=== PATIENT | male | born 1955 | race Caucasian/White ===

== ENCOUNTER → 2016-08-23 | Outpatient (CLI) | payer OTHER ==
--- NOTE | 2016-08-23 10:45 | XR ---
EXAMINATION TYPE: XR shoulder complete LT DATE OF EXAM: 08/23/2016 10:40 AM COMPARISON: NONE HISTORY: Pain TECHNIQUE: Three views are submitted. FINDINGS: The osseous structures are intact. There is no acute fracture or dislocation. The AC joint is maint ained. IMPRESSION: 1. No acute process. If there is concern for internal derangement then consider MRI.
== END | disposition home or self-care (01) ==
LOC: RADXRMAIN 10:27
PROVIDERS: ATTEND Emergency Medicine
DX: S43.402A Unspecified sprain of left shoulder joint, initial encounter (principal)

== ENCOUNTER 2017-10-09 07:54 | Observation (INO) | payer BC ==
[2017-10-09] MEDS ORDERED: SODIUM CHLORIDE 0.9% 1,000 ML IV STA (08:30)
[2017-10-09 08:50] LABS: Basophils % (A) 1 %; Eosinophils # (A) 0.3 k/uL (0-0.7); Eosinophils % (A) 5 %; HCT 45.9 % (39.0-53.0); HGB 15.2 gm/dL (13.0-17.5); Lymphocytes # (A) 1.6 k/uL (1.0-4.8); Lymphocytes % (A) 26 %; MCH 27.4 pg (25.0-35.0); MCHC 33.1 g/dL (31.0-37.0); MCV 82.8 fL (80.0-100.0); Mean Platelet Volume 7.4; Monocytes # (A) 0.4 k/uL (0-1.0); Monocytes % (A) 7 %; Neutrophils # (A) 3.7 k/uL (1.3-7.7); Neutrophils % (A) 59 %; Platelet Count 267 k/uL (150-450); RBC 5.54 m/uL (4.30-5.90); RDW 13.7 % (11.5-15.5); WBC 6.2 k/uL (3.8-10.6)
--- NOTE | 2017-10-09 08:57 | XR ---
EXAMINATION TYPE: XR chest 2V DATE OF EXAM: 10/09/2017 COMPARISON: NONE HISTORY: Facial numbness and weakness. TECHNIQUE: Frontal and lateral views of the chest are obtained. FINDINGS: Low lung volumes are present. There is no focal air space opacity, pleural effusion, or pn eumothorax seen. The cardiac silhouette size is within normal limits. Retrocardiac opacity consisten t with moderate size hiatal hernia is noted. There is moderate to severe multilevel anterior and late ral spurring in the spine. Surgical clips epigastric region are noted. There is partial visualization of surgical hardware left shoulder level. IMPRESSION: Low lung volumes without suspicious acute pulmonary process.
[2017-10-09 09:03] LABS: ALT 31 U/L (21-72); AST 29 U/L (17-59); Alkaline Phosphatase 65 U/L (38-126); Anion Gap 12 mmol/L; Blood Urea Nitrogen 21 mg/dL (9-20); Calcium 9.5 mg/dL (8.4-10.2); Carbon Dioxide 25 mmol/L (22-30); Chloride 100 mmol/L (98-107); Glucose 171 mg/dL (74-99); Partial Thromboplastin Time 22.5 sec (22.0-30.0); Potassium 3.6 mmol/L (3.5-5.1); Prothrombin Time 9.9 sec (9.0-12.0); Sodium 137 mmol/L (137-145); Total Bilirubin 0.7 mg/dL (0.2-1.3); Total Protein 6.4 g/dL (6.3-8.2)
[2017-10-09 09:05] LABS: Creatine Kinase 158 U/L (55-170)
[2017-10-09 09:18] LABS: Creatine Kinase MB 2.1 ng/mL (0.0-2.4); Troponin I <0.012 ng/mL (0.000-0.034)
--- NOTE | 2017-10-09 09:20 | CT ---
EXAMINATION TYPE: CT brain wo con DATE OF EXAM: 10/09/2017 HISTORY: Numbness and Slurred Speech, neurodeficits per order. CT DLP: 1290 mGycm. Automated Exposure Control for Dose Reduction was Utilized. TECHNIQUE: CT scan of the head is performed without contrast. COMPARISON: None. FINDINGS: There is no acute intracranial hemorrhage or midline shift identified. There is diffuse v entricular and sulcal prominence consistent with diffuse age-related cerebral atrophy. There is low- attenuation in the periventricular white matter consistent with chronic small vessel ischemic change. Area of lacunar infarction left thalamus is present axial image 31. There is moderate size left post erior frontal hematoma axial image 44. The adjacent calvarium is intact. Streak artifact limits evalu ation at level of foramen magnum from cavitary fillings. Some vascular calcification distal internal carotid and vertebral arteries is noted. IMPRESSION: No acute intracranial hemorrhage or midline shift. There is mild diffuse age-related ce rebral atrophy and mild to moderate chronic small vessel ischemic change as well as old left thalamic lacunar infarct all redemonstrated. There is moderate-sized acute left posterior frontal scalp juan david vy noted. If clinical concern for acute stroke persists further investigation with MRI study may be warranted.
[2017-10-09] MEDS ORDERED: hydrALAZINE HCL 20 MG/ML 1 ML VIAL IVP STA (10:25)
[2017-10-09] MEDS ORDERED: ASPIRIN 81 MG PO STA (10:25)
[2017-10-09] MEDS ORDERED: NITROGLYCERIN SL TABS 0.4 MG TAB SUBLINGUAL PRN (10:32)
[2017-10-09] MEDS ORDERED: ACETAMINOPHEN TAB 325 MG TAB PO PRN (10:32)
[2017-10-09] MEDS ORDERED: MORPHINE SULFATE 2 MG/ML SYRINGE IVP PRN (10:32)
--- NOTE | 2017-10-09 10:32 | ED ---
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 he has a left-sided facial numbness and facial numbness has resolved by the time he arrived here he has a history of TIAs and now he is feeling dizzy prior to arrival to the ER he noticed some chest pains chest pains in the left side they do not radiate anywhere no nausea no vomiting no cold sweats a blood pressure is quite elevated blood pressure was close to 200 systolic on arrival review of system is otherwise unremarkable no motor deficits right now - Related Data Home Medications: Home Medications Medication Instructions Recorded Confirmed Aspirin EC [Ecotrin Low Dose] 81 mg PO HS 10/09/17 10/09/17 Atorvastatin [Lipitor] 40 mg PO HS 10/09/17 10/09/17 Calcium Polycarbophil [Fibercon] 1,250 mg PO BID 10/09/17 10/09/17 Lisinopril 40 mg PO DAILY 10/09/17 10/09/17 amLODIPine [Norvasc] 5 mg PO DAILY 10/09/17 10/09/17 buPROPion HCL [Wellbutrin XL] 300 mg PO DAILY 10/09/17 10/09/17 cloNIDine HCL [Catapres] 0.2 mg PO TID 10/09/17 10/09/17 Allergies/Adverse Reactions: Allergies Allergy/AdvReac Type Severity Reaction Status Date / Time No Known Allergies Allergy Verified 10/09/17 09:25 Review of Systems ROS Statement: Those systems with pertinent positive or pertinent negative responses have been documented in the HPI. ROS Other: All systems not noted in ROS Statement are negative. General Exam - General Exam Comments Initial Comments: General: The patient is awake and alert, in no distress, and does not appear acutely ill. Skin: Skin is warm and dry and no rashes or lesions are noted. Eye: Pupils are equal, round and reactive to light, extra-ocular movements are intact; there is normal conjunctiva bilaterally. Ears, nose, mouth and throat: There are moist mucous membranes and no oral lesions. Neck: The neck is supple, there is no tenderness or JVD. Cardiovascular: There is a regular rate and rhythm. No murmur, rub or gallop is appreciated. Respiratory: To auscultation bilateral, no wheezing no rhonchi no distress respiratory solano noticed Gastrointestinal: Soft, non-distended, non-tender abdomen without masses or organomegaly noted. There is no rebound or guarding present. Bowel sounds are unremarkable. Back: There is no tenderness to palpation in the midline. There is no obvious deformity. Musculoskeletal: Normal ROM, no tenderness, There is no pedal edema. There is no calf tenderness or swelling. No cords were appreciated. Neurological: CN II-XII intact, Cranial nerves III through XII are intact. There are no obvious motor or sensory deficits. Coordination appears grossly intact. Speech is normal. Neuro deficits noticed at all Psychiatric: Cooperative, appropriate mood & affect, normal judgment. Limitations: no limitations Stroke MDM - Lab Data Result diagrams: 10/09/17 08:22 10/09/17 08:22 Lab Results 10/09/17 10/09/17 10/09/17 Range/Units 08:22 08:22 08:22 WBC 6.2 (3.8-10.6) k/uL RBC 5.54 (4.30-5.90) m/uL Hgb 15.2 (13.0-17.5) gm/dL Hct 45.9 (39.0-53.0) % MCV 82.8 (80.0-100.0) fL MCH 27.4 (25.0-35.0) pg MCHC 33.1 (31.0-37.0) g/dL RDW 13.7 (11.5-15.5) % Plt Count 267 (150-450) k/uL Neutrophils % 59 % Lymphocytes % 26 % Monocytes % 7 % Eosinophils % 5 % Basophils % 1 % Neutrophils # 3.7 (1.3-7.7) k/uL Lymphocytes # 1.6 (1.0-4.8) k/uL Monocytes # 0.4 (0-1.0) k/uL Eosinophils # 0.3 (0-0.7) k/uL Basophils # 0.0 (0-0.2) k/uL PT (9.0-12.0) sec INR (<1.2) APTT (22.0-30.0) sec Sodium 137 (137-145) mmol/L Potassium 3.6 (3.5-5.1) mmol/L Chloride 100 (98-107) mmol/L Carbon Dioxide 25 (22-30) mmol/L Anion Gap 12 mmol/L BUN 21 H (9-20) mg/dL Creatinine 0.84 (0.66-1.25) mg/dL Est GFR (CKD-EPI)AfAm >90 (>60 ml/min/1.73 sqM) Est GFR (CKD-EPI)NonAf >90 (>60 ml/min/1.73 sqM) Glucose 171 H (74-99) mg/dL Calcium 9.5 (8.4-10.2) mg/dL Total Bilirubin 0.7 (0.2-1.3) mg/dL AST 29 (17-59) U/L ALT 31 (21-72) U/L Alkaline Phosphatase 65 (38-126) U/L Total Creatine Kinase 158 (55-170) U/L CK-MB (CK-2) 2.1 (0.0-2.4) ng/mL CK-MB (CK-2) Rel Index 1.3 Troponin I <0.012 (0.000-0.034) ng/mL Total Protein 6.4 (6.3-8.2) g/dL Albumin 4.0 (3.5-5.0) g/dL 10/09/17 Range/Units 08:22 WBC (3.8-10.6) k/uL RBC (4.30-5.90) m/uL Hgb (13.0-17.5) gm/dL Hct (39.0-53.0) % MCV (80.0-100.0) fL MCH (25.0-35.0) pg MCHC (31.0-37.0) g/dL RDW (11.5-15.5) % Plt Count (150-450) k/uL Neutrophils % % Lymphocytes % % Monocytes % % Eosinophils % % Basophils % % Neutrophils # (1.3-7.7) k/uL Lymphocytes # (1.0-4.8) k/uL Monocytes # (0-1.0) k/uL Eosinophils # (0-0.7) k/uL Basophils # (0-0.2) k/uL PT 9.9 (9.0-12.0) sec INR 1.0 (<1.2) APTT 22.5 (22.0-30.0) sec Sodium (137-145) mmol/L Potassium (3.5-5.1) mmol/L Chloride (98-107) mmol/L Carbon Dioxide (22-30) mmol/L Anion Gap mmol/L BUN (9-20) mg/dL Creatinine (0.66-1.25) mg/dL Est GFR (CKD-EPI)AfAm (>60 ml/min/1.73 sqM) Est GFR (CKD-EPI)NonAf (>60 ml/min/1.73 sqM) Glucose (74-99) mg/dL Calcium (8.4-10.2) mg/dL Total Bilirubin (0.2-1.3) mg/dL AST (17-59) U/L ALT (21-72) U/L Alkaline Phosphatase (38-126) U/L Total Creatine Kinase (55-170) U/L CK-MB (CK-2) (0.0-2.4) ng/mL CK-MB (CK-2) Rel Index Troponin I (0.000-0.034) ng/mL Total Protein (6.3-8.2) g/dL Albumin (3.5-5.0) g/dL Past Medical History Past Medical History: CVA/TIA, Diabetes Mellitus, Hyperlipidemia, Hypertension History of Any Multi-Drug Resistant Organisms: None Reported Past Surgical History: Back Surgery, Bariatric Surgery, Joint Replacement Additional Past Surgical History / Comment(s): gastric sleeve, left shoulder replacement Past Psychological History: No Psychological Hx Reported Smoking Status: Never smoker Past Alcohol Use History: Rare Past Drug Use History: None Reported Course Vital Signs 10/09/17 10/09/17 07:56 09:43 Temperature 98.1 F Pulse Rate 74 65 Respiratory 18 18 Rate Blood Pressure 202/127 161/88 O2 Sat by Pulse 98 98 Oximetry KG is normal sinus ventricular rate is 62 PA interval is 204 QRS duration is 98 QT/QTc is 460/2422 review of this EKG reveals T-wave inversion in lead 3 and a T -wave a T-wave flattening in aVF also noticed T-wave inversion in AVR poor T waves in V2 no ST elevation or ST depression noticed in the rest of the leads (Reassessment CBC, INR, comp his metabolic panel, EKG, troponin are unremarkable head CT didn't reveal any abnormal intracranial findings patient's blood pressures high and he still has a mild chest discomfort he be admitted to Dr. Sauceda service cardiology be consulted and neurology be consulted Critical Care Time Total Critical Care Time: 30 Critical Care Time: Since neurological symptoms had resolved by the time he arrived to the ER, blood pressure was) systolic [address] ruled out any intracranial bleed that aspirin was given 81 mg and a considering his very low heartrate we held off to labetalol he was given some hydralazine and now he still has a chest pain we can admit him under acute coronary syndrome considering he has a history of diabetes and hypertension he is not on any diabetes medications because he lost over 70 pounds after he had a gastric sleeve his blood pressure is also rather uncontrolled at this point after admission he becomes seeing neurology as well as cardiology Disposition Clinical Impression: Numbness and tingling of left side of face, Chest pain Disposition: ADMITTED IP TO THIS HOSP Condition: Good Referrals: Mahin Carter DO [Primary Care Provider] - 1-2 days
[2017-10-09] MEDS ORDERED: MORPHINE SULFATE 2 MG/ML SYRINGE IVP STA (11:04)
[2017-10-09] MEDS ORDERED: NALOXONE 0.4 MG/ML 1 ML VIAL IV PRN (11:41)
--- NOTE | 2017-10-09 14:16 | CONS ---
CONSULTATION CHIEF COMPLAINT: Left facial numbness. Mr. Guzman is a 62-year-old gentleman who is from [place] who works here in [place] presented to the hospital with sudden onset of left-sided facial numbness. He describes it as the feeling he gets when he gets injected by Novocain at a dentist. He subsequently had some chest discomfort and has chronic left shoulder pain. The facial numbness has gradually resolved by the time he came to the ER. The patient has a history of TIA also. The patient had some sense of dizziness and he also had some chest tightness with elevated blood pressures. These symptoms have since resolved. He also received a dose of morphine in the ER for chest pain. At the time of my evaluation, he appears comfortable at rest. Does not have any left facial numbness and does not have any chest pain. An EKG on him shows sinus rhythm with evidence of prior inferior wall myocardial infarction. The patient's clinical presentation could be related to a TIA or the left facial numbness may be related to underlying significant obstructive CAD. He had a CT scan of the brain that is negative. I asked the ER physician to talk to the neurologist and see if the patient can be started on IV heparin. Also the patient tells me that he lives in very close to [facility] and wishes to go there so that it is easy for his to commute and see him in the hospital, so I asked the ER doctor to make arrangements for the patient to go to [facility]. If he is not going there and he is admitted here, we will do further workup depending upon what the neurologist thinks. If this is not an episode of TIA, then I will do a cardiac catheterization on him. If they think it is TIA, will consider a stress test either during hospitalization or after discharge. I discussed these issues at length with the patient. He understands and in agreement with the plan. PAST MEDICAL HISTORY: Significant for hypertension and dyslipidemia. MEDICATIONS: At home include Catapres 0.2 t.i.d., Wellbutrin, Norvasc 5 daily, lisinopril 40 daily, Lipitor 40 daily and aspirin. ALLERGIES: There are no known drug allergies. FAMILY HISTORY: Negative for premature coronary artery disease. SOCIAL HISTORY: Negative for smoking, EtOH abuse, or drug abuse. PAST SURGICAL HISTORY: Significant for gastric stapling. REVIEW OF SYSTEMS: HEENT is unremarkable. CARDIAC: As described above. RESPIRATORY: Negative. GI: Negative. GENITOURINARY: Negative. ALLERGY/IMMUNOLOGY: Negative. SKIN: Negative. MUSCULOSKELETAL: Negative. ENDOCRINE: Negative. DERM: Negative. CONSTITUTIONAL: Negative. ONCOLOGICAL: Negative. RN MOBILE: As described above. Rest of the system review is not relevant. EXAM: Comfortable at rest. Afebrile. Heart rate is 70 beats per minute. Blood pressure is 150/80, respirations 18, O2 sat is 100% on 2 L. There is no jugular venous distention. Chest exam reveals good air entry bilaterally. Heart exam reveals first and second heart sounds. No gallop. No murmur. No rub. Abdomen is soft, nontender. Exam of extremities did not reveal any edema. Peripheral pulses are felt. RN MOBILE exam did not reveal focal neurological deficits. EKG shows sinus rhythm with evidence of prior inferior wall myocardial infarction. LABS: Labs show that the 1st set of troponin is negative. Potassium is 3.6, hemoglobin is 15.2. ASSESSMENT: 1. Precordial chest pain. 2. Left facial numbness, rule out transient ischemic attack. 3. Hypertension. 4. Dyslipidemia. PLAN: Will control the blood pressure. Start IV heparin once a neurologist okays it and further care based on whether he is transferred to [place] or he stays here. MMODL / IJN: [id number] /
[2017-10-09] MEDS: NITROGLYCERIN OINT 1 INCH/GM PACKET TOPICAL STA ×2 (14:23→14:25)
[2017-10-09] MEDS ORDERED: HEPARIN SODIUM,PORCINE 5,000 UNIT/ML 1 ML VIAL IV PRN (14:52)
[2017-10-09] MEDS ORDERED: HEPARIN SODIUM,PORCINE 5,000 UNIT/ML 1 ML VIAL IV ONE (15:00)
[2017-10-09 15:06] LABS: Creatine Kinase 132 U/L (55-170)
[2017-10-09 15:19] LABS: Troponin I <0.012 ng/mL (0.000-0.034)
[2017-10-09] MEDS ORDERED: HEPARIN SOD,PORK IN 0.45% NACL 25,000 UNIT in 0.45% NACL 1 500ML.BAG IV SCH (15:30)
--- NOTE | 2017-10-09 15:30 | P.HPIM ---
History of Present Illness H&P Date: 10/09/17 Chief Complaint: Left facial numbness 62-year-old male with history of hypertension and TIA presented to emergency department because this morning while he was at work he suddenly felt flushed in the face, his eyes were red and the left side of his face around the mouth went numb. He denied having any weakness in any of his extremities or weakness in the face. Currently is feeling in his face is back. No blurry vision or double vision, no slurred speech. He felt slightly dizzy and had left-sided chest pain as well. The chest pain continued until the time of evaluation. The pain was located over the left shoulder and he wasn't sure if it was truly chest pain or just shoulder discomfort. Patient was able to walk okay after he had this episode. No sick contacts. No recent illness, no fevers or chills, no nausea or vomiting. Patient stated that he had an episode of diarrhea today. Review of Systems 12 point review of system performed, negative except for HPI Past Medical History Past Medical History: CVA/TIA, Diabetes Mellitus, Hyperlipidemia, Hypertension History of Any Multi-Drug Resistant Organisms: None Reported Past Surgical History: Back Surgery, Bariatric Surgery, Joint Replacement Additional Past Surgical History / Comment(s): gastric sleeve, left shoulder replacement Past Psychological History: No Psychological Hx Reported Smoking Status: Never smoker Past Alcohol Use History: Rare Past Drug Use History: None Reported - Past Family History Mother Additional Family Medical History / Comment(s): mom is alive at age 93 has a pacemaker Father Family Medical History: CVA/TIA, Myocardial Infarction ([place]) Medications and Allergies Home Medications Medication Instructions Recorded Confirmed Type Aspirin EC [Ecotrin Low Dose] 81 mg PO HS 10/09/17 10/09/17 History Atorvastatin [Lipitor] 40 mg PO HS 10/09/17 10/09/17 History Calcium Polycarbophil [Fibercon] 1,250 mg PO BID 10/09/17 10/09/17 History Lisinopril 40 mg PO DAILY 10/09/17 10/09/17 History amLODIPine [Norvasc] 5 mg PO DAILY 10/09/17 10/09/17 History buPROPion HCL [Wellbutrin XL] 300 mg PO DAILY 10/09/17 10/09/17 History cloNIDine HCL [Catapres] 0.2 mg PO TID 10/09/17 10/09/17 History Allergies Allergy/AdvReac Type Severity Reaction Status Date / Time No Known Allergies Allergy Verified 10/09/17 09:25 Physical Exam Vitals: Vital Signs Temp Pulse Resp BP Pulse Ox 10/09/17 11:05 72 18 150/83 100 10/09/17 09:43 65 18 161/88 98 10/09/17 07:56 98.1 F 74 18 202/127 98 Intake and Output 10/08/17 10/09/17 10/09/17 22:59 06:59 14:59 Other: Weight 96.162 kg Constitutional: No acute distress, conversant, pleasant Eyes:Anicteric sclerae, moist conjunctiva, no lid-lag, PERRLA, ENMT: Oropharynx clear, no erythema, exudates Neck: Supple, FROM, no masses, or JVD, No carotid bruits, No thyromegaly Lungs: Clear to auscultation, Clear to percussion, Normal respiratory effort, no accessory muscle use Cardiovascular: Heart regular in rate and rhythm, No murmurs, gallops, or rubs, No peripheral edema Abdominal: Soft, Nontender, no guarding, rebound or rigidity, Normoactive bowel sounds, No hepatomegaly, No splenomegaly, No palpable mass Skin: Normal temperature, tone, texture, turgor, no induration, No subcutaneous nodules, No rash, lesions, No ulcers Extremities: No digital cyanosis, No clubbing, Pedal pulses intact and symmetrical, Radial pulses intact and symmetrical, No calf tenderness Psychiatric: Alert and oriented to person, place and time, appropriate affect, intact judgement Neuro: Muscles Strength 5/5 in all 4 extremities, Sensation to light touch grossly present throughout, Cranial nerves II-XII grossly intact, no focal sensory deficits Results CBC & Chem 7: 10/09/17 08:22 10/09/17 08:22 Labs: Abnormal Lab Results - Last 24 Hours (Table) 10/09/17 Range/Units 08:22 BUN 21 H (9-20) mg/dL Glucose 171 H (74-99) mg/dL Assessment and Plan Plan: Left facial numbness Could be secondary to TIA or stroke Admit to observation with telemetry MRI of the brain to rule out stroke Neurology consult No need for full stroke workup at this point as his symptoms are not clearly secondary to stroke/TIA. Left-sided chest pain Telemetry Cycle troponins Cardiology evaluation Hyperlipidemia/hypertension essential Stable Resume home meds DVT prophylaxis Ambulatory, low risk Anticipated discharge: 1-2 days Disposition: Likely home
[2017-10-09] MEDS: cloNIDine HCL 0.2 MG TAB PO SCH ×2 (17:04→21:19)
[2017-10-09] MEDS ORDERED: ATORVASTATIN 40 MG TAB PO SCH ×2 (21:00)
[2017-10-09] MEDS ORDERED: ASPIRIN 81 MG PO SCH (21:00)
[2017-10-09 21:14] LABS: Creatine Kinase MB 1.9 ng/mL (0.0-2.4); Troponin I 0.013 ng/mL (0.000-0.034)
--- NOTE | 2017-10-09 22:02 | CONS ---
CONSULTATION DATE OF CONSULTATION: 10/09/2017 CHIEF COMPLAINT: Transient ischemic attack. HISTORY OF PRESENT ILLNESS: The patient is a pleasant 62-year-old male who is being evaluated by the Neurology service per the request of Dr. Crowder for a transient ischemic attack. The patient was brought into [facility] Emergency Room after he had a sudden onset of numbness and tingling involving his left face. The patient states that he did evaluate his face on the mirror and he noticed no facial drooping or weakness. The numbness lasted approximately 1 hour and resolved spontaneously. In the emergency room, a CT scan of the brain was done, which showed generalized atrophy and small- vessel ischemic changes. His blood pressure was found to be significantly elevated at 202/127. He was given IV antihypertensive and his blood pressure is better controlled at this time. In the emergency room, the patient developed a severe chest pain. His EKG was normal and his cardiac enzymes have been negative thus far after two sets. Cardiology has been consulted. The patient does take aspirin daily at home. His CBC and INR were normal. His comprehensive metabolic profile was normal except for hyperglycemia at 171. At the time of my evaluation, the patient is resting in his bed and appears to be in no acute distress. He denies any recurrence of any neurological symptoms at this time. He does report a previous history of transient ischemic attack, which is why he takes aspirin daily. PAST MEDICAL HISTORY: Transient ischemic attack, diabetes, dyslipidemia, hypertension, history of spine surgery, joint replacement surgery, bariatric surgery, gastric sleeve, left shoulder surgery. SOCIAL HISTORY: He denies any tobacco or drug use. He rarely drinks alcohol. FAMILY HISTORY: Positive for heart disease and strokes. HOME MEDICATIONS: Reviewed in the chart. ALLERGIES: No known drug allergies. REVIEW OF SYSTEMS: CONSTITUTIONAL: Negative. EYES: Negative. ENT: Negative. CARDIOVASCULAR: As mentioned above. RESPIRATORY: Negative. NEUROLOGICAL: As mentioned above. GASTROINTESTINAL: Negative. GENITOURINARY: Negative. PSYCHIATRIC: Negative. ENDOCRINE: Positive for diabetes. MUSCULOSKELETAL: Positive for occasional joint pain. DERMATOLOGICAL: Negative. PHYSICAL EXAM: Vital signs show a temperature of 98.4, pulse 99, respiration 18, blood pressure 185/91. GENERAL APPEARANCE: The patient is a well-developed male, who appears to be in no acute distress. HEENT: Normocephalic, atraumatic, no facial asymmetry is seen. Extraocular muscles are intact. NECK: Supple with no masses felt. CARDIOVASCULAR: Regular rate and rhythm. ABDOMEN: Nontender, nondistended. Extremities showed no edema or clubbing. NEUROLOGICAL EXAM: The patient is awake and oriented x3. Speech and language are normal. Strength is full in all 4 extremities. Sensory exam was normal to light touch in all 4 extremities. No pronator drift is seen. [id number] testing showed no dysmetria. No facial asymmetry is noticed on cranial nerve testing. IMPRESSION: 1. Transient ischemic attack. 2. Left facial numbness, resolved. 3. Atypical chest pain. 4. Small vessel ischemic disease. RECOMMENDATION: The patient does appear to have suffered a transient ischemic attack with a transient episode of left facial numbness and tingling. His symptoms did resolve after 1 hour without any recurrence. The patient was on aspirin daily at home. I will switch his aspirin to Plavix 75 mg daily. I will order a carotid Doppler, fasting lipid panel, EEG, and serum homocystine level. His blood pressure continues to be elevated, although it is improved from his emergency room arrival blood pressure. Cardiology is following the patient. Continue neuro checks. I will continue to follow with you. Further recommendations to follow. Thank you for allowing me to participate in the care of your patient. If you have any questions, please feel free to contact me. MMARMANDL / IJN: [id number] /
[2017-10-09] MEDS: CALCIUM POLYCARBOPHIL 625 MG TAB PO SCH (23:00)
[2017-10-10 08:12] LABS: Basophils % (A) 1 %; Eosinophils # (A) 0.3 k/uL (0-0.7); Eosinophils % (A) 5 %; HCT 37.9 % (39.0-53.0); HGB 13.1 gm/dL (13.0-17.5); Lymphocytes # (A) 1.7 k/uL (1.0-4.8); Lymphocytes % (A) 29 %; MCH 28.8 pg (25.0-35.0); MCHC 34.4 g/dL (31.0-37.0); MCV 83.6 fL (80.0-100.0); Mean Platelet Volume 7.5; Monocytes # (A) 0.5 k/uL (0-1.0); Monocytes % (A) 9 %; Neutrophils # (A) 3.2 k/uL (1.3-7.7); Neutrophils % (A) 55 %; Platelet Count 220 k/uL (150-450); RBC 4.54 m/uL (4.30-5.90); RDW 13.8 % (11.5-15.5); WBC 5.8 k/uL (3.8-10.6)
[2017-10-10 08:18] LABS: Anion Gap 7 mmol/L; Blood Urea Nitrogen 18 mg/dL (9-20); Carbon Dioxide 31 mmol/L (22-30); Chloride 100 mmol/L (98-107); Cholesterol 133 mg/dL (<200); Glucose 180 mg/dL (74-99); HDL Cholesterol 34 mg/dL (40-60); LDL Cholesterol,Calculated 66 mg/dL (0-99); Magnesium 1.7 mg/dL (1.6-2.3); Phosphorus 3.4 mg/dL (2.5-4.5); Potassium 3.6 mmol/L (3.5-5.1); Sodium 138 mmol/L (137-145); Triglycerides 165 mg/dL (<150)
[2017-10-10] MEDS ORDERED: LORazepam 2 MG/ML INJ ONE (08:30)
[2017-10-10] MEDS ORDERED: amLODIPine 5 MG TAB PO SCH (09:00)
[2017-10-10] MEDS ORDERED: CLOPIDOGREL 75 MG TAB PO SCH (09:00)
[2017-10-10] MEDS ORDERED: buPROPion XL 300 MG TAB.ER.24H PO SCH (09:00)
[2017-10-10] MEDS ORDERED: LISINOPRIL 20 MG TAB PO SCH (09:00)
--- NOTE | 2017-10-10 10:00 | ECHOF ---
Referral Reason:cp MEASUREMENTS -------- HEIGHT: 152.4 cm WEIGHT: 96.2 kg BP: RVIDd: 3.3 cm (< 3.3) IVSd: 1.3 cm (0.6 - 1.1) LVIDd: 4.8 cm (3.9 - 5.3) LVPWd: 1.6 cm (0.6 - 1.1) IVSs: 1.8 cm LVIDs: 3.4 cm LVPWs: 1.5 cm LA Diam: 4.0 cm (2.7 - 3.8) LAESV Index (A-L): 23.75 ml/m Ao Diam: 2.8 cm (2.0 - 3.7) MV EXCURSION: 22.126 mm (> 18.000) MV EF SLOPE: 139 mm/s (70 - 150) EPSS: 0.2 cm MV E Gera: 0.43 m/s MV DecT: 295 ms MV A Gera: 0.93 m/s MV E/A Ratio: 0.47 RAP: 5.00 mmHg RVSP: 19.65 mmHg FINDINGS -------- Undetermined rhythm. This was a technically adequate study. The left ventricular size is normal. There is mild concentric left ventricular hypertrophy. Overa ll left ventricular systolic function is normal with, an EF between 55 - 60 %. The right ventricle is normal in size. The left atrial size is normal. The right atrial size is normal. There is mild aortic valve sclerosis. There is no evidence of aortic regurgitation. Mild mitral annular calcification present. Mild mitral regurgitation is present. Mild tricuspid regurgitation present. There is no evidence of pulmonary hypertension. The right v entricular systolic pressure, as measured by Doppler, is 19.65mmHg. The pulmonic valve was not well visualized. The aortic root size is normal. Echo free space indicative of a pericardial fat pad. CONCLUSIONS -------- 1. The left ventricular size is normal. 2. There is mild concentric left ventricular hypertrophy. 3. The right ventricle is normal in size. 4. The left atrial size is normal. 5. The right atrial size is normal. 6. There is mild aortic valve sclerosis. 7. Mild mitral annular calcification present. 8. Mild mitral regurgitation is present. 9. Mild tricuspid regurgitation present. 10. There is no evidence of pulmonary hypertension. 11. The right ventricular systolic pressure, as measured by Doppler, is 19.65mmHg. 12. The pulmonic valve was not well visualized. 13. The aortic root size is normal. 14. Echo free space indicative of a pericardial fat pad. STRIP ROLLER: Leandra Hathaway RDCS
--- NOTE | 2017-10-10 11:12 | MR ---
Micky Guzman EXAMINATION TYPE: MR brain wo con DATE OF EXAM: 10/10/2017 COMPARISON: 10/09/2017 HISTORY: 62-year-old male TIA, numbness and slurred speech TECHNIQUE: Multiplanar, multisequence images of the brain and brainstem were acquired without IV con trast. Diffusion weighted imaging is performed. FINDINGS: No evidence for acute infarction, hemorrhage, mass, mass effect, midline shift, herniation, effacemen t of basal cisterns, or extra-axial fluid collection. The ventricles and sulci are age-appropriate with mild atrophy. Major intracranial flow voids are intact. Suspect persistent origin of the right [place]. T2/FLAIR weighted sequences show moderate patchy and confluent bright white matter change especially in the periventricular and deep white matter regions and a few foci in the subcortical regions of bot h cerebral hemispheres. 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 Midline structures demonstrate normal morphology. The craniocervical junction is normal. Mild diffuse thickening throughout the ethmoid air cells. The globes are intact. IMPRESSION: 1. No acute intracranial abnormality seen. 2. Mild atrophy and moderate patchy and confluent white matter changes, nonspecific, likely relating to chronic small vessel ischemic disease.
[2017-10-10] MEDS: cloNIDine HCL 0.2 MG TAB PO SCH ×2 (11:13→15:44)
[2017-10-10] MEDS: CALCIUM POLYCARBOPHIL 625 MG TAB PO SCH (11:13)
[2017-10-10] MEDS ORDERED: DOBUTamine DRIP for NUC MED 500 MG in DEXTROSE/WATER 1 250ML.BAG IV ONE (11:30)
[2017-10-10] MEDS ORDERED: amLODIPine 10 MG TAB PO SCH (11:45)
--- NOTE | 2017-10-10 11:45 | P.PN ---
Subjective Progress Note Date: 10/10/17 This is a 62-year-old gentleman who seen in consultation yesterday by Dr. Peres, he presented to the hospital with symptoms of sudden onset of left facial numbness, subsequent to that he also experience an episode of chest discomfort. Patient is being followed by neurology who felt that the patient may have had a TIA. Initial CAT scan of the brain did not reveal any acute intracranial hemorrhage or midline shift, mild diffuse age-related cerebral atrophy and mild to moderate chronic small vessel ischemic change as well as old left found that the sooner infarct demonstrated. There is a moderate-sized acute left posterior frontal scalp hematoma noted. His EKG showed normal sinus rhythm with nonspecific ST-T wave changes. Echocardiogram with Doppler study was performed which revealed a normal left ventricular systolic function. MRI of the brain did not reveal any acute intracranial abnormality. Troponins were essentially negative 3. At the time of her examination today, patient denied any further facial numbness, no chest discomfort. He's been recommended to undergo stress echocardiographic study which will be performed today. From cardiology's perspective if the stress test is negative he may be able to be stressed discharged home and follow-up in the office as an outpatient. His blood pressure this morning was 187/92 prior to receiving any of his antihypertensives. We did however increase his dose of Norvasc to 10 mg daily. Objective - Vital Signs Vital signs: Vital Signs Temp 97.4 F L 10/10/17 08:00 Pulse 68 10/10/17 08:00 Resp 18 10/10/17 08:00 BP 187/92 10/10/17 08:00 Pulse Ox 98 10/10/17 08:00 Intake & Output 10/09/17 10/10/17 10/10/17 18:59 06:59 18:59 Intake Total 240 Balance 240 Weight 96.162 kg Intake: Oral 240 Other: Voiding Method Toilet Toilet # Voids 1 1 0 - Exam PHYSICAL EXAMINATION: GENERAL: 62-year-old gentleman in no apparent distress at the time of my examination. HEENT: Head is atraumatic, normocephalic. Pupils equal, round. Sclera anicteric. Conjunctiva are clear. Mucous membranes of the mouth are moist. Neck is supple. There is no elevated jugular venous pressure.] bruit is heard. HEART EXAMINATION: Heart S1, S2 normal. No murmur or gallop heard. CHEST EXAMINATION: Lungs are clear to auscultation and precussion. No chest wall tenderness is noted on palpation or with deep breathing. ABDOMEN: Soft, nontender. Bowel sounds are heard. No organomegaly noted. EXTREMITIES: 2+ peripheral pulses with no evidence of peripheral edema and no calf tenderness noted. NEUROLOGIC patient is awake, alert and oriented ?-3. . - Labs CBC & Chem 7: 10/10/17 05:32 10/09/17 08:22 Labs: Abnormal Lab Results - Last 24 Hours (Table) 10/10/17 Range/Units 05:32 Hct 37.9 L (39.0-53.0) % Assessment and Plan Plan: Assessment and plan #1 left-sided facial numbness, neurology feels the patient may benefit TIA. No acute findings on MRI. Symptoms have resolved. #2 atypical chest discomfort with negative troponins. EKG shows normal sinus rhythm with nonspecific ST-T wave changes. Patient scheduled to undergo stress echocardiographic study today. #3 hypertension #4 hyperlipidemia Plan Patient will be scheduled to undergo stress echocardiographic study today, if the stress test is negative then from our perspective he may be able to be discharged home today. DNP note has been reviewed, I agree with a documented findings and plan of care. Patient was seen and examined.
--- NOTE | 2017-10-10 12:56 | ECHOS ---
STRESS ECHOCARDIOGRAM INDICATIONS: Chest pain. BASELINE HEART RATE: 65 BASELINE BLOOD PRESSURE: 170/92 MAXIMUM HEART RATE: 136 MAXIMUM BLOOD PRESSURE: 202/103 85% MPHR: 133 100% MPHR: 157 METS: 8.5 MAXIMUM STAGE REACHED: 3 TOTAL EXERCISE TIME: 7:00 CLINICAL INFORMATION: Baseline EKG shows sinus rhythm, normal axis, normal intervals. Patient exercised on Mundo protocol for a total of 7 minutes achieving 8 METS, 86% of predicted maximum heart rate without chest pain or diagnostic ST-segment depression. The test was stopped secondary to discomfort in his legs. Baseline echo shows normal left ventricular size, wall motion, systolic function. Postexercise there is normal hyperdynamic response of all segments of myocardium noted. CONCLUSIONS: 1. Average exercise tolerance. 2. Negative stress test by EKG criteria. 3. Negative stress echo. MMODL / IJN: [id number] /
--- NOTE | 2017-10-10 14:52 | US ---
EXAMINATION TYPE: US carotid duplex BILAT DATE OF EXAM: 10/10/2017 COMPARISON: NONE CLINICAL HISTORY: TIA. EXAM MEASUREMENTS: RIGHT: Peak Systolic Velocity (PSV) cm/sec ----- Right CCA: 77.6 ----- Right ICA: 124.2 ----- Right ECA: 96.6 ICA/CCA ratio: 1.6 RIGHT: End Diastole cm/sec ----- Right CCA: 19.3 ----- Right ICA: 30.5 ----- Right ECA: 6.5 LEFT: Peak Systolic Velocity (PSV) cm/sec ----- Left CCA: 88.1 ----- Left ICA: 101.7 ----- Left ECA: 87.1 ICA/CCA ratio: 1.2 LEFT: End Diastole cm/sec ----- Left CCA: 19.3 ----- Left ICA: 22.8 ----- Left ECA: 9.2 VERTEBRALS (direction of flow): Right Vertebral: Antegrade Left Vertebral: Antegrade Bilateral tortuous ICA's distally, moderate to severe plaque with no significant velocity increases. Grayscale, color Doppler, spectral Doppler imaging performed of the carotid arteries. Waveform analys is does not show significant stenosis of the proximal internal carotid arteries by Doppler criteria. IMPRESSION: No hemodynamic significant stenosis of the proximal internal carotid arteries bilaterall y by Doppler criteria, an indirect measurement of carotid stenosis.
[2017-10-10 15:30] VITALS: BP 158/88; PULSE 94; RESP 20; TEMP 98
--- NOTE | 2017-10-10 17:07 | P.PN ---
Subjective Progress Note Date: 10/10/17 Patient is a pleasant 62-year-old male who is being followed by the neurology service for TIA. Patient came to [facility] for evaluation after sudden onset of facial numbness and tingling. Patient states episode lasted about an hour. Facial numbness have resolved spontaneously. Computed tomography scan of the brain was done which showed no acute process but did show generalized atrophy and small vessel ischemic changes. Blood pressure was elevated and he was given IV antihypertensive medication. Patient was taking aspirin in the home setting which was switched to Plavix during this admission. No recurrence of facial numbness since admission. Patient states he is back to baseline with like to return to work. At the time of my evaluation, patient is resting comfortably in bed and appears to be in no acute distress. No new or recurring neurological symptoms reported. Objective - Vital Signs Vital signs: Vital Signs Temp 98 F 10/10/17 15:29 Pulse 94 10/10/17 15:29 Resp 20 10/10/17 15:29 BP 158/88 10/10/17 15:29 Pulse Ox 96 10/10/17 15:29 Intake & Output 10/09/17 10/10/17 10/10/17 18:59 06:59 18:59 Intake Total 240 0 Balance 240 0 Weight 96.162 kg 96.162 kg Intake: IV 0 Heparin Sod,Pork in 0.45% 0 NaCl 25,000 unit In 0.45 % NaCl 1 500ml.bag @ 10.4 UNITS/KG/HR 20 mls/hr IV .Q24H [facility] Rx#:[id number] Oral 240 Other: Voiding Method Toilet Toilet # Voids 1 1 2 - Exam PHYSICAL EXAM: GENERAL APPEARANCE: Patient is a well-developed, male who appears to be in no acute distress. HEENT: Normocephalic, atraumatic, no facial asymmetry is seen. Neck is supple with no masses felt. CARDIOVASCULAR: Regular rate and rhythm. ABDOMEN: Nontender, nondistended. EXTREMITIES: Show no edema or clubbing. NEUROLOGICAL EXAM: Patient is awake, alert, and oriented 3. Speech and language are normal. Strength is full in all 4 extremities. Sensory exam to light touch is normal in all 4 extremities. No facial asymmetry seen on cranial nerve testing. No tremors or seizure-like activity noted. No pronator drift noted. - Labs CBC & Chem 7: 10/10/17 05:32 10/10/17 05:32 Labs: Abnormal Lab Results - Last 24 Hours (Table) 10/10/17 10/10/17 Range/Units 05:32 05:32 Hct 37.9 L (39.0-53.0) % Carbon Dioxide 31 H (22-30) mmol/L Glucose 180 H (74-99) mg/dL Triglycerides 165 H (<150) mg/dL HDL Cholesterol 34 L (40-60) mg/dL Assessment and Plan Plan: Impression: 1. Transient ischemic attack 2. Hypertension 3. Left facial numbness, resolved 4. Small vessel ischemic disease 5. Atypical chest pain Recommendation: Patient does appear to have suffered transient ischemic attack with a transient episode of left facial numbness and tingling. His symptoms are now resolved. I recommend to continue Plavix 75 mg by mouth daily. His carotid Doppler was negative for any hemodynamically significant stenosis. EEG was done and results are pending. Triglycerides were high at 165 and HDL was low at 34. Continue statin therapy. Homocystine level was within normal limits. Patient was asking if he could drive, from a neurological standpoint there is no contraindication to his driving. Patient did not lose consciousness. I did discuss with patient about stroke prevention. I encouraged patient to monitor his blood pressure in the home setting as well as staying on Plavix and statin. Patient is stable for discharge from a neurological standpoint. He can follow up in the office in a few weeks. Continue neurological checks. Barring any pathology on the EEG, I will continue to follow with you on an as-needed basis. Feel free to call with any questions or concerns. I performed an examination of the patient and discussed the management with the MAIL CARRIERS SUPERVISOR. I have reviewed the MAIL CARRIERS SUPERVISOR notes and agree with the findings and plan of care.
--- NOTE | 2017-10-10 19:26 | EEG ---
ELECTROENCEPHALOGRAM REPORT DATE OF SERVICE: 10/10/2017 REASON FOR TESTING: Transient ischemic attack. DESCRIPTION OF THE PROCEDURE: This EEG was performed using a 21-channel digital electroencephalograph, following international 10-20 system. DESCRIPTION OF THE RECORDING: From the beginning of the tracing, and with the patient's eyes closed, the background rhythm was mostly consisting of 8 Hz alpha frequency in the posterior occipital leads. No obvious asymmetry is seen. Photic stimulation was performed with a minimal driving response seen. No pathological waves were elicited. Hyperventilation was not performed. Lead artifacts are seen mainly in the right frontal lead. The patient does reach stage II of sleep during the tracing and occasional sleep spindles are seen. No epileptiform discharges were seen. His EKG lead showed a regular rate and rhythm. INTERPRETATION: This asleep and awake EEG can be considered within normal limits. There was no asymmetry seen. No epileptiform discharges were noticed. The absence of epileptiform discharges does not rule out the diagnosis of epilepsy; therefore clinical correlation is recommended. MMJACK / DARION: [id number] /
--- NOTE | 2017-10-11 09:18 | P.DS ---
Providers Date of admission: 10/09/17 10:32 Expected date of discharge: 10/10/17 Attending physician: Sulma Crowder MD Consults: 10/09/17 10:32 Consult Physician Stat Consulting Provider: Ventura Coffey Consult Reason/Comments: Left-sided facial numbness Do you want consulting provider notified?: Yes Consult Physician Urgent Consulting Provider: Roby Babb Consult Reason/Comments: chest pain Do you want consulting provider notified?: Yes Primary care physician: Mahin Hernandez [facility] Course: 62-year-old male with history of hypertension and TIA presented to emergency department because this morning while he was at work he suddenly felt flushed in the face, his eyes were red and the left side of his face around the mouth went numb. He denied having any weakness in any of his extremities or weakness in the face. Currently is feeling in his face is back. No blurry vision or double vision, no slurred speech. He felt slightly dizzy and had left-sided chest pain as well. The chest pain continued until the time of evaluation. The pain was located over the left shoulder and he wasn't sure if it was truly chest pain or just shoulder discomfort. Patient was able to walk okay after he had this episode. No sick contacts. No recent illness, no fevers or chills, no nausea or vomiting. Patient stated that he had an episode of diarrhea today. In the ER and throughout the hospitalization his bp was found to be mildly elevated at 165-180 systolic and 90-100 diastolic. The rest of the vital signs are all within normal limits. Laboratory findings were all within normal normal limits including troponin. Patient was admitted to the hospital, he was placed on telemetry which did not show any abnormalities. His troponin was cycled and that remained negative. Evaluation by neurology concluded that patient did have a TIA. He had a complete stroke workup including MRI of the brain, carotid Dopplers and echocardiogram and CAME back normal. He also had an EEG and that did not show any epileptiform discharges. Patient was also evaluated by cardiology who thought that the patient's symptoms were due to a TIA and patient did not need heart catheterization for further workup for ischemic heart disease. Patient did undergo a stress echocardiogram and that was negative for ischemic changes. Patient did not have any recurrent symptoms while in the hospital. It was noted that his blood sugars on his laboratory testing were high ranging from 170s-180s. He was advised to follow-up with his primary care physician to screen him for diabetes. Was also told to exercise and to watch his diet. Aspirin was switched to Plavix by neurology to help prevent further events. He will be discharged home in stable condition. Discharge diagnoses TIA, likely secondary to small vessel disease due to hypertension, possibly diabetes Negative cardiac workup, including echocardiogram and stress echo Patient Condition at Discharge: Good Plan - Discharge Summary Discharge Rx Participant: Yes New Discharge Prescriptions: New Clopidogrel [Plavix] 75 mg PO DAILY #30 tab Continue buPROPion HCL [Wellbutrin XL] 300 mg PO DAILY Calcium Polycarbophil [Fibercon] 1,250 mg PO BID Atorvastatin [Lipitor] 40 mg PO HS Aspirin EC [Ecotrin Low Dose] 81 mg PO HS cloNIDine HCL [Catapres] 0.2 mg PO TID amLODIPine [Norvasc] 5 mg PO DAILY Lisinopril 40 mg PO DAILY Discharge Medication List Aspirin EC [Ecotrin Low Dose] 81 mg PO HS 10/09/17 [History] Atorvastatin [Lipitor] 40 mg PO HS 10/09/17 [History] Calcium Polycarbophil [Fibercon] 1,250 mg PO BID 10/09/17 [History] Lisinopril 40 mg PO DAILY 10/09/17 [History] amLODIPine [Norvasc] 5 mg PO DAILY 10/09/17 [History] buPROPion HCL [Wellbutrin XL] 300 mg PO DAILY 10/09/17 [History] cloNIDine HCL [Catapres] 0.2 mg PO TID 10/09/17 [History] Clopidogrel [Plavix] 75 mg PO DAILY #30 tab 10/10/17 [Rx] Follow up Appointment(s)/Referral(s): Ventura Coffey MD [STAFF PHYSICIAN] - 2 Weeks (Office is closed. Please call to schedule appointment) Mahin Carter DO [Primary Care Provider] - 10/12/17 1:00 pm (Sunday CHECK AIC AND FASTING GLUCOSE FOR DIABETES AND IMPROVE BLOOD PRESSURE CONTROL PER DR CROWDER) Roby Babb MD [STAFF PHYSICIAN] - 10/25/17 9:30 am ( Bring ID and medication list with you) Patient Instructions/Handouts: Transient Ischemic Attack (DC), Chest Pain (DC) Activity/Diet/Wound Care/Special Instructions: NO RESTRICTION ON DRIVING FROM NEUROLOGY STANDPOINT Discharge Disposition: HOME SELF-CARE
== END 2017-10-10 21:00 | disposition home or self-care (01) ==
LOC: EC 07:54 → 6SEL 10:32
PROVIDERS: ADMIT Internal Medicine; ATTEND Internal Medicine
DX: G45.9 Transient cerebral ischemic attack, unspecified (principal); R07.2 Precordial pain; R07.89 Other chest pain; M25.512 Pain in left shoulder; I10 Essential (primary) hypertension; G89.29 Other chronic pain; R19.7 Diarrhea, unspecified; E11.65 Type 2 diabetes mellitus with hyperglycemia; E78.5 Hyperlipidemia, unspecified; S00.03XA Contusion of scalp, initial encounter; I25.2 Old myocardial infarction; Z98.84 Bariatric surgery status; Z86.73 Personal history of transient ischemic attack (TIA), and cerebral infarction without residual deficits; Z79.899 Other long term (current) drug therapy; Z79.82 Long term (current) use of aspirin; Z82.49 Family history of ischemic heart disease and other diseases of the circulatory system
CPT/HCPCS: 99285 ×2; 96374 ×2; 96375 ×2; 96361 ×7; 36415; 95819; 93005; 93306; 93351; 80061; 80053; 80048; 82550; 82553; 83735; 84100; 84484; 85025 ×2; 85610; 85730; 83090; 71046; 93880; 70450; 70551; G0378 ×3; J1250; J0360; J2270